=== PATIENT | male | born 1975 | race American Indian/Alaskan Native ===

== ENCOUNTER 2020-08-28 11:33 | Emergency (ER) | payer SELFPAY ==
[2020-08-28] MEDS ORDERED: LIDOCAINE-MPF (1%) 10 MG/1 ML VIAL 5 ML INFILTRATI ONE (12:58)
--- NOTE | 2020-08-28 13:00 | Emergency Department Report ---
ED General Adult HPI - General Chief complaint: Urogenital-Male Stated complaint: STD EXPOSURE/BOIL Time Seen by Provider: 08/28/20 11:44 Source: patient Mode of arrival: Ambulatory Limitations: No Limitations - History of Present Illness Initial comments: 45-year-old -[place] male patient presents with complaints of left groin swelling x3 days and penile discharge. Patient states he believes he has an ingrown hair. He states there was a bump that popped and pus came out of it relieving the pain. He denies any fever/chills/sweats, dysuria/hematuria, penile/testicular pain/swelling, or abdominal pain. No painful swollen hot joints per patient or sore throat. He denies any past medical history -: Sudden - Related Data Previous Rx's Medication Instructions Recorded Last Taken Type Doxycycline Hyclate 100 mg PO BID 10 Days #20 tablet. 08/28/20 Unknown Rx Allergies Allergy/AdvReac Type Severity Reaction Status Date / Time No Known Allergies Allergy Unverified 08/28/20 14:33 ED Review of Systems ROS: Stated complaint: STD EXPOSURE/BOIL Other details as noted in HPI Constitutional: denies: chills, diaphoresis, fever, malaise, weakness ENT: denies: throat pain Respiratory: denies: SOB with exertion Cardiovascular: denies: chest pain Gastrointestinal: denies: abdominal pain Genitourinary: as per HPI Skin: as per HPI Hematological/Lymphatic: denies: swollen glands ED Past Medical Hx - Medications Home Medications: Home Medications Medication Instructions Recorded Confirmed Last Taken Type Doxycycline Hyclate 100 mg PO BID 10 Days #20 tablet. 08/28/20 Unknown Rx ED Physical Exam - General Limitations: No Limitations General appearance: alert, in no apparent distress - Head Head exam: Present: atraumatic, normocephalic - Eye Eye exam: Present: normal appearance - Neck Neck exam: Present: normal inspection - Respiratory Respiratory exam: Present: normal lung sounds bilaterally. Absent: respiratory distress - Cardiovascular Cardiovascular Exam: Present: regular rate, normal rhythm - GI/Abdominal GI/Abdominal exam: Present: soft. Absent: tenderness - exam: Present: normal inspection. Absent: scrotal swelling External exam: Present: normal external exam, other (Mildly tender left groin open abscess noted; without active drainage there is surrounding induration without cellulitic changes noted;) - Neurological Exam Neurological exam: Present: alert, oriented X3, normal gait - Psychiatric Psychiatric exam: Present: normal affect, normal mood - Skin Skin exam: Present: warm, dry, normal color. Absent: rash ED Course Vital Signs 08/28/20 16:51 Temperature 98.5 F Pulse Rate 77 Respiratory 18 Rate Blood Pressure 119/79 [Right] O2 Sat by Pulse 98 Oximetry ED Medical Decision Making - Medical Decision Making 45-year-old -[place] male patient presents with complaints of left groin swelling x3 days and penile discharge. Patient states he believes he has an ingrown hair. He states there was a bump that popped and pus came out of it relieving the pain. He denies any fever/chills/sweats, dysuria/hematuria, penile/testicular pain/swelling, or abdominal pain. No painful swollen hot joints per patient or sore throat. He denies any past medical history Open abscess noted of the left groin on exam. Recommend warm compresses 4 times daily. Given penile discharge, will treat infection with Doxy which will also cover for chlamydia. Patient given IM Rocephin. He is to follow-up at a [facility] for further STI testing and inform his partner of his symptoms. Discussed signs and symptoms that should prompt immediate return to the emergency department in detail with patient who verbalized understanding. He is well-appearing, his vitals are within normal limits, he is stable for discharge home. Critical care attestation.: If time is entered above; I have spent that time in minutes in the direct care of this critically ill patient, excluding procedure time. ED Disposition Clinical Impression: Abscess of groin, left, Penile discharge, without blood Disposition: [id number] TO HOME OR SELFCARE Is pt being admited?: No Condition: Stable Instructions: Skin Abscess, Urethritis, Adult Prescriptions: Doxycycline Hyclate 100 mg PO BID 10 Days #20 tablet. Referrals: [facility] [Provider Group] - 3-5 Days
[2020-08-28 16:52] VITALS: BP 119/79
== END 2020-08-28 14:00 | disposition home or self-care (01) ==
LOC: ED 11:33
DX: L02.214 Cutaneous abscess of groin (principal); R36.9 Urethral discharge, unspecified; Z79.899 Other long term (current) drug therapy
CPT/HCPCS: 96372; 99282; J0696